=== PATIENT | female | born 2000 | race Two or more races ===

== ENCOUNTER 2024-04-10 18:10 | Emergency (ER) | payer MEDICAID, SELFPAY ==
[2024-04-10 19:17] VITALS: BP 139/90; PULSE 116; RESP 20; TEMP 37.4; O2SAT 97
--- NOTE | 2024-04-10 19:21 | PD.EDADULT ---
ED General RME/HPI General Chief complaint: Flu Like Symptoms Stated complaint: COUGH Time Seen by Provider: 04/10/24 19:14 Arrival date/time: 04/10/24 18:10 RME / HPI RME / HPI narrative: This section includes all my notes and documentations, including HPI, PE, and ED course. Richard Patterson MD HPI: 23yo female presents to the ED for a chief complaint of flu-like symptoms since Thursday. Patient states she's had fever, chills, a cough, and shortness of breath since Thursday. She states her symptoms have been persistent, so she came in for evaluation. She reports associated back pain due to coughing. She denies abdominal pain, N/V or any other associated symptoms. No further complaints reported. ROS: All negative except as documented in HPI. Physical Exam: General: Alert and oriented. Hacking cough noted. Eyes: Conjunctivae and lids clear. ENT: Pharynx normal. TM normal bilaterally. Neck: Supple. Heart: RRR. Lungs: No respiratory distress. Good air movement with rhonchi. Abdomen: Soft and nontender. Legs: No clubbing, cyanosis, edema. Skin: Warm and dry. Neuro: Alert and oriented X 3. I reviewed all diagnostic test results. My interpretation of the chest x-ray is increased bronchial markings. COVID/influenza negative. At this point, diagnoses include bronchitis. Treatment here included Zithromax and prednisone and DuoNeb. Significant improvement Based on my best medical judgment, made decision no further evaluation or treatment indicated at this time. Patient understands and agrees to the discharge instructions customized and printed, see below. Discharge instructions from Dr. Patterson: --No physical exertion for 3 days to help rest the lungs. ?-No smoking or exposure to smoking or pets or dust or cold or humidity. --Zithromax to kill the germs causing the bronchitis. --Prednisone to help decrease the swelling in the airways. --Albuterol 2 puffs every 4-6 hours as needed for cough or shortness of breath. --See a private doctor on 04/15/2024 if not completely better. --Seek immediate medical care with worsening or with any concerns. Richard Patterson MD Related Data Previous Rx's ?Medication ?Instructions ?Recorded albuterol sulfate 90 mcg/actuation 2 inh inhalation QID PRN shortness 04/10/24 aerosol inhaler of breath or wheezing #8.5 grams azithromycin 500 mg tablet 500 mg PO QDAY 3 days #3 tabs 04/10/24 (Zithromax TRI-CINDY) prednisone 20 mg tablet 40 mg PO DAILY 3 days #6 tabs 04/10/24 Allergies Allergy/AdvReac Type Severity Reaction Status Date / Time No Known Allergies Allergy Verified 04/10/24 18:15 Review of Systems Review of Systems Systems Reviewed: All systems reviewed, normal except as documented Past Medical History Social History SMOKING STATUS: Never smoker ED Exam Narrative Physical exam: As noted in HPI. Course Course Course Narrative: CXR is ordered for determining the etiology of cough. Quality Measures none Orders Category Date Time Status Bedside COVID-19 Antigen Test NOW Care 04/10/24 19:23 Active XR chest 1V portable Stat Exams 04/10/24 19:22 Completed Influenza A & B Rapid Panel Stat Lab 04/10/24 21:21 Completed Albuterol/Ipratr Rt Hoda [Duoneb Rt Hoda] Med 04/10/24 19:21 Discontinued 3 ml INH X1 ONE Azithromycin Po [Zithromax PO] Med 04/10/24 22:21 Discontinued 500 mg PO X1 ONE predniSONE Med 04/10/24 19:21 Discontinued 60 mg PO X1 ONE Vital Signs Vital signs: Vital Signs Temperature 99.4 F 04/10/24 19:17 Pulse Rate 116 H 04/10/24 19:17 Respiratory Rate 20 04/10/24 19:17 Blood Pressure 139/90 H 04/10/24 19:17 Pulse Oximetry (%) 97 04/10/24 19:17 Oxygen Delivery Method Room Air 04/10/24 19:[address] [facility] Patient data External records reviewed:: [facility] previous records (Per chart review, patient has no previous ED visits or admissions to this facility.) Clinical information provided by:: patient Social determinants that could affect healthcare access:: none Patient has the following chronic illnesses:: none How is presenting disease/condition affected by chronic disease/condition?: no chronic disease Evaluation data The following diagnostics were reviewed and interpreted by me:: lab results and radiology exam(s) Lab and/or radiology exams considered but not ordered:: none Interpretation Summary: Bronchitis Medications Medications considered but not ordered:: none Medication administrations:: Medication Administration History Discontinued Medications Albuterol/Ipratropium (Albuterol/Ipratropium (Duoneb) Rt Hoda 3 Ml Nebu) 3 ml INH X1 ONE Stop: 04/10/24 19:22 Last Admin: 04/10/24 20:06 Dose: 3 ml Documented By: LORRAINE Azithromycin (Azithromycin 250 Mg Tablet) 500 mg PO X1 ONE Stop: 04/10/24 22:22 Prednisone (Prednisone 20 Mg Tablet) 60 mg PO X1 ONE Stop: 04/10/24 19:22 Last Admin: 04/10/24 19:46 Dose: 60 mg Documented By: BOUCHRA Zithromax and prednisone and DuoNeb Consultations Consultation(s) initiated? (list below): No Diagnosis Differential Diagnosis ED Complaint MDM: COVID, Influenza, bronchitis, URI, pneumonia Most likely diagnosis given after review of the tests above:: bronchitis Admission Indicated Admission indicated?: not indicated Explain why admission is indicated or not indicated:: Admission criteria not met. Admission Request Was there a request for admission?: No Disposition Plan Disposition Plan: Discharge Discharge Attestation Discharge Attestation: The patient and all family members were given an opportunity to ask questions and understood the discharge instructions. Discharge instructions specifically effects, indications for sooner follow up or return to the emergency department, and the expected course of current diagnosis. Patient condition: Stable Medical Decision Making MDM Narrative MDM Narrative: Scribe Attestation: 04/10/24 Yamilka La am scribing for and in the presence of Dr. Patterson. Differential Diagnosis Differential Diagnosis: COVID, Influenza, bronchitis, URI, pneumonia Lab Data Labs: Lab Results 04/10/24 Range/Units 21:21 Influenza A (Rapid) Negative Influenza B (Rapid) Negative Discharge Plan Plan Patient Disposition: HOME (Self Care) Prescriptions/Referrals Prescriptions/Med Rec: New prednisone 20 mg tablet 40 mg PO DAILY 3 Days Qty: 6 0RF Taper: Prednisone Taper 20 mg DAILY for 2 Days and 0 Hour 10 mg DAILY for 2 Days and 0 Hour 5 mg DAILY for 7 Days and 0 Hour albuterol sulfate 90 mcg/actuation HFA aerosol inhaler 2 inh inhalation QID PRN (Reason: shortness of breath or wheezing) Qty: 8.5 0RF azithromycin [Zithromax TRI-CINDY] 500 mg tablet 500 mg PO QDAY 3 Days Qty: 3 0RF Referrals: Laurent Russell MD [Primary Care Provider] - In 1 week Problem List Clinical Impression: Bronchitis Patient/Caregiver Discharge Instructions Education Materials: ED Bronchitis with Wheezing (Adult) Additional Instructions: Discharge instructions from Dr. Patterson: --No physical exertion for 3 days to help rest the lungs. ?-No smoking or exposure to smoking or pets or dust or cold or humidity. --Zithromax to kill the germs causing the bronchitis. --Prednisone to help decrease the swelling in the airways. --Albuterol 2 puffs every 4-6 hours as needed for cough or shortness of breath. --See a private doctor on 04/15/2024 if not completely better. --Seek immediate medical care with worsening or with any concerns. Print Language: Latvian Stand Alone Forms: [employer] Award Info., Patient Portal Info Letter
--- NOTE | 2024-04-10 19:22 | XR_ITS ---
Examination: AP chest single view Technique: AP upright chest single view Exam date and time: April 10, 2024 1954 hrs. Indications: Coughing fever beginning 3 days ago. Findings: Normal heart size Lungs are clear. The osseous structures are intact Impression: No active disease
[2024-04-10] MEDS: predniSONE 20 MG TABLET 60 MG PO (19:46)
[2024-04-10 20:06] VITALS: PULSE 126; RESP 20; O2SAT 99
[2024-04-10] MEDS: ALBUTEROL/IPRATROPIUM (Duoneb) RT SOL 3 ML NEBU INH (20:06)
[2024-04-10 22:13] LABS: Influenza A Ag Negative; Influenza B Ag Negative
[2024-04-10 22:39] VITALS: BP 141/91; PULSE 116; RESP 18; TEMP 37.3; O2SAT 96
[2024-04-10] MEDS: AZITHROMYCIN 250 MG TABLET 500 MG PO (22:40)
== END 2024-04-10 22:40 | disposition home or self-care (01) ==
PROVIDERS: Emergency Provider Emergency Medicine; PCP Family Medicine
DX: J40 Bronchitis, not specified as acute or chronic (principal)
CPT/HCPCS: 71045; 87502; 87811; 94640; 99283; A9270; J7512